=== PATIENT | female | born 1990 | race Caucasian/White ===

== ENCOUNTER 2018-11-07 09:16 | Emergency (ER) | payer MEDICAID ==
[2018-11-07] MEDS: ACETAMINOPHEN 325 MG TAB PO (10:18)
[2018-11-07] MEDS: SOD CHLORIDE 0.9% 1,000 ML IV (10:31)
[2018-11-07 10:42] LABS: ADD UMIC YES; UR ASCORBIC ACID 40 mg/dL (NEGATIVE); UR BACTERIA MODERATE /HPF (NONE SEEN); UR BILIRUBIN (Dip) NEGATIVE (NEGATIVE); UR BLOOD (Dip) NEGATIVE (NEGATIVE); UR CLARITY CLOUDY (CLEAR); UR COLOR AMBER (YELLOW); UR GLUCOSE (Dip) NEGATIVE (NEGATIVE); UR KETONES (Dip) 2+ mg/dL (NEGATIVE); UR LEUKOCYTE ESTERASE (Dip) TRACE Leu/ul (NEGATIVE); UR MUCUS MANY /HPF (NONE SEEN); UR NITRITE (Dip) NEGATIVE (NEGATIVE); UR RBC 0 /HPF (0-5); UR SPECIFIC GRAVITY (Dip) 1.026 (1.003-1.030); UR SQUAMOUS EPITHELIAL CELL FEW /HPF (FEW); UR TOTAL PROTEIN (Dip) NEGATIVE (NEGATIVE); UR UROBILINOGEN (Dip) NEGATIVE (NEGATIVE); UR WBC 18 /HPF (0-5)
[2018-11-07] MEDS: CEFTRIAXONE 1 GM/50 ML (PMX) 50 ML IVPB (11:39)
[2018-11-07] MEDS: OSELTAMIVIR 75 MG CAP PO (11:40)
[2018-11-07] MEDS: SODIUM CHLORIDE 0.9% 1L BAG IV* (12:12)
== END 2018-11-07 13:12 | disposition home or self-care (01) ==
LOC: FTE 09:16
DX: O99.519 Diseases of the respiratory system complicating pregnancy, unspecified trimester (principal); O23.40 Unspecified infection of urinary tract in pregnancy, unspecified trimester; J10.1 Influenza due to other identified influenza virus with other respiratory manifestations; Z3A.00 Weeks of gestation of pregnancy not specified
CPT/HCPCS: 81001; 81025; 87400; 96374; 99284-25

== ENCOUNTER 2019-03-30 11:04 | Inpatient (IN) | payer OTHER, MEDICAID ==
[2019-03-30] MEDS ORDERED: CARBOPROST 250 MCG INJ IM (12:00)
[2019-03-30] MEDS ORDERED: IBUPROFEN 600 MG TAB PO (12:00)
[2019-03-30] MEDS ORDERED: MISOPROSTOL 200 MCG TAB PR (12:00)
[2019-03-30] MEDS ORDERED: OXYTOCIN 30 UNITS/LR 500 ML IV ×2 (12:00)
[2019-03-30] MEDS ORDERED: METHYLERGONOVINE 0.2 MG INJ IM (12:00)
[2019-03-30] MEDS ORDERED: LIDOCAINE 1% (MPF) 30 ML INJ INJ (12:00)
[2019-03-30 13:17] LABS: ADD UMIC YES; UR AMORPHOUS CRYSTAL FEW /HPF (NONE SEEN); UR ASCORBIC ACID NEGATIVE (NEGATIVE); UR BACTERIA MANY /HPF (NONE SEEN); UR BILIRUBIN (Dip) NEGATIVE (NEGATIVE); UR BLOOD (Dip) 1+ mg/dL (NEGATIVE); UR CLARITY CLOUDY (CLEAR); UR COLOR YELLOW (YELLOW); UR GLUCOSE (Dip) NEGATIVE (NEGATIVE); UR KETONES (Dip) NEGATIVE (NEGATIVE); UR LEUKOCYTE ESTERASE (Dip) 3+ Leu/ul (NEGATIVE); UR NITRITE (Dip) NEGATIVE (NEGATIVE); UR RBC 8 /HPF (0-5); UR SPECIFIC GRAVITY (Dip) 1.004 (1.003-1.030); UR SQUAMOUS EPITHELIAL CELL FEW /HPF (FEW); UR TOTAL PROTEIN (Dip) NEGATIVE (NEGATIVE); UR UROBILINOGEN (Dip) NEGATIVE (NEGATIVE); UR WBC 30 /HPF (0-5)
[2019-03-30] MEDS: LACTATED RINGER'S 1,000 ML IV ×2 (13:26→17:41)
[2019-03-30 13:35] LABS: ADD MAN DIFF? NO
[2019-03-30 13:38] LABS: BASOPHILS % 0.2 % (0.0-2.0); EOSINOPHILS # 0.1 10^3/ul (0.0-0.5); EOSINOPHILS % 1.2 % (0.0-7.0); HEMATOCRIT 38.2 % (37.0-47.0); HEMOGLOBIN 13.7 g/dl (12.0-16.0); LYMPHOCYTES # 1.9 10^3/ul (0.8-2.9); LYMPHOCYTES % 22.4 % (15.0-51.0); MEAN CORPUSCULAR HEMOGLOBIN 30.9 pg (29.0-33.0); MEAN CORPUSCULAR HGB CONC 35.9 g/dl (32.0-37.0); MEAN PLATELET VOLUME 12.4 fl (7.4-10.4); MONOCYTE # 0.8 10^3/ul (0.3-0.9); MONOCYTES % 8.8 % (0.0-11.0); NEUTROPHIL # 5.7 10^3/ul (1.6-7.5); NEUTROPHILS % 66.8 % (39.0-77.0); PLATELET COUNT 159 10^3/UL (140-415); RED BLOOD COUNT 4.44 10^6/ul (4.20-5.40); RED CELL DISTRIBUTION WIDTH 13.8 % (11.5-14.5)
[2019-03-30 13:38] LABS: WHITE BLOOD COUNT 8.6 10^3/ul (4.8-10.8)
[2019-03-30 13:56] LABS: ALANINE AMINOTRANSFERASE 15 IU/L (13-69); ALBUMIN 3.6 g/dl (3.3-4.9); ALKALINE PHOSPHATASE 185 IU/L (42-121); ANION GAP 9 (5-13); ASPARTATE AMINO TRANSFERASE 22 IU/L (15-46); BILIRUBIN,INDIRECT 0.8 mg/dl (0-1.1); BILIRUBIN,TOTAL 0.8 mg/dl (0.2-1.3); BLOOD UREA NITROGEN 8 mg/dl (7-20); CALCIUM 9.4 mg/dl (8.4-10.2); CARBON DIOXIDE 20 mmol/L (21-31); CHLORIDE 110 mmol/L (97-110); CREATININE 0.54 mg/dl (0.44-1.00); Estimated GFR > 60 mL/min (>60); GLUCOSE 88 mg/dl (70-220); SODIUM 139 mmol/L (135-144); TOTAL PROTEIN 7.2 g/dl (6.1-8.1); URIC ACID 6.4 mg/dl (3.1-7.9)
[2019-03-30 13:57] LABS: INR 0.82; PARTIAL THROMBOPLASTIN TIME 24.2 Sec (23.0-35.0); PROTIME 11.4 Sec (11.9-14.9); PT RATIO 0.9
[2019-03-30 14:27] LABS: HEPATITIS B SURFACE ANTIGEN NEGATIVE (NEGATIVE)
[2019-03-30 14:37] LABS: HIV 1&2 ANTIBODY NEGATIVE (NEGATIVE)
[2019-03-30 20:03] LABS: RAPID PLASMA REAGIN NONREACTIVE (NR)
[2019-03-30] MEDS: MISOPROSTOL 50 MCG CAPSULE PO (22:54)
[2019-03-30] MEDS: AMPICILLIN 2 GM/NS (PMX) 100 ML IV (22:54)
[2019-03-31] MEDS ORDERED: MISOPROSTOL 50 MCG CAPSULE PO ×2 (01:00→22:30)
[2019-03-31] MEDS: LACTATED RINGER'S 1,000 ML IV ×2 (03:01→14:00)
[2019-03-31] MEDS: AMPICILLIN 1 GM/NS (PMX) 50 ML IV ×5 (03:01→23:44)
[2019-03-31] MEDS: MISOPROSTOL 50 MCG CAPSULE PO ×5 (03:02→20:43)
[2019-03-31] MEDS: MAGNESIUM SULFATE 4 GM/100 ML 100 ML IVPB (19:40)
[2019-03-31] MEDS: MAGNESIUM SULFATE 20 GM/500 ML 500 ML IV (20:22)
[2019-03-31 20:26] LABS: ADD MAN DIFF? NO
[2019-03-31 20:28] LABS: WHITE BLOOD COUNT 10.3 10^3/ul (4.8-10.8)
[2019-03-31 20:28] LABS: BASOPHILS % 0.1 % (0.0-2.0); EOSINOPHILS # 0.1 10^3/ul (0.0-0.5); EOSINOPHILS % 0.5 % (0.0-7.0); HEMATOCRIT 37.2 % (37.0-47.0); HEMOGLOBIN 13.3 g/dl (12.0-16.0); LYMPHOCYTES # 2.3 10^3/ul (0.8-2.9); LYMPHOCYTES % 22.7 % (15.0-51.0); MEAN CORPUSCULAR HEMOGLOBIN 31.1 pg (29.0-33.0); MEAN CORPUSCULAR HGB CONC 35.8 g/dl (32.0-37.0); MEAN CORPUSCULAR VOLUME 86.9 fl (82.0-101.0); MEAN PLATELET VOLUME 12.5 fl (7.4-10.4); MONOCYTES % 9.4 % (0.0-11.0); NEUTROPHIL # 6.9 10^3/ul (1.6-7.5); NEUTROPHILS % 66.8 % (39.0-77.0); NUCLEATED RED BLOOD CELLS% 0.2 /100WBC (0.0-0.0); PLATELET COUNT 163 10^3/UL (140-415); RED BLOOD COUNT 4.28 10^6/ul (4.20-5.40); RED CELL DISTRIBUTION WIDTH 13.8 % (11.5-14.5)
[2019-03-31 20:49] LABS: ALANINE AMINOTRANSFERASE 14 IU/L (13-69); ALBUMIN 3.4 g/dl (3.3-4.9); ALBUMIN/GLOBULIN RATIO 0.97; ALKALINE PHOSPHATASE 198 IU/L (42-121); ANION GAP 10 (5-13); ASPARTATE AMINO TRANSFERASE 21 IU/L (15-46); BILIRUBIN,INDIRECT 0.9 mg/dl (0-1.1); BILIRUBIN,TOTAL 0.9 mg/dl (0.2-1.3); BLOOD UREA NITROGEN 7 mg/dl (7-20); CALCIUM 9.1 mg/dl (8.4-10.2); CARBON DIOXIDE 18 mmol/L (21-31); CHLORIDE 108 mmol/L (97-110); CREATININE 0.56 mg/dl (0.44-1.00); Estimated GFR > 60 mL/min (>60); GLUCOSE 88 mg/dl (70-220); POTASSIUM 3.7 mmol/L (3.5-5.1); SODIUM 136 mmol/L (135-144); TOTAL PROTEIN 6.9 g/dl (6.1-8.1); URIC ACID 6.3 mg/dl (3.1-7.9)
[2019-04-01] MEDS: LACTATED RINGER'S 1,000 ML IV ×3 (01:38→19:26)
[2019-04-01] MEDS: AMPICILLIN 1 GM/NS (PMX) 50 ML IV ×5 (03:43→20:04)
[2019-04-01] MEDS: MAGNESIUM SULFATE 20 GM/500 ML 500 ML IV ×2 (06:44→17:01)
[2019-04-01 07:10] LABS: MAGNESIUM 5.4 mg/dl (1.7-2.5)
[2019-04-01] MEDS: OXYTOCIN 30 UNITS/LR 500 ML IV (11:45)
[2019-04-01 12:39] LABS: MAGNESIUM 5.4 mg/dl (1.7-2.5)
[2019-04-01] MEDS: ACETAMINOPHEN 325 MG TAB PO (15:12)
[2019-04-01 19:46] LABS: RUBELLA ANTIBODY - IGG 6.77 index
[2019-04-01 20:08] LABS: MAGNESIUM 5.7 mg/dl (1.7-2.5)
[2019-04-02] MEDS: ONDANSETRON 4 MG INJ IV (00:04)
[2019-04-02] MEDS: AMPICILLIN 1 GM/NS (PMX) 50 ML IV ×10 (00:04→21:24)
[2019-04-02 01:49] LABS: MAGNESIUM 6.1 mg/dl (1.7-2.5)
[2019-04-02] MEDS: MAGNESIUM SULFATE 20 GM/500 ML 500 ML IV ×3 (02:14→22:34)
[2019-04-02 06:34] LABS: MAGNESIUM 6.2 mg/dl (1.7-2.5)
[2019-04-02] MEDS: LACTATED RINGER'S 1,000 ML IV (10:17)
[2019-04-02] MEDS: BUTORPHANOL 2 MG INJ IV (12:23)
[2019-04-02 13:36] LABS: MAGNESIUM 6.2 mg/dl (1.7-2.5)
[2019-04-02] MEDS ORDERED: NALOXONE (0.4 MG/ML) INJ IV (14:30)
[2019-04-02] MEDS ORDERED: DIPHENHYDRAMINE 50 MG INJ IV (14:30)
[2019-04-02] MEDS ORDERED: ONDANSETRON 4 MG INJ IV (14:30)
[2019-04-02] MEDS ORDERED: KETOROLAC 30 MG INJ IV (14:30)
[2019-04-02] MEDS ORDERED: HYDROmorphONE 0.5 MG/0.5 ML SYG IV ×2 (14:30)
[2019-04-02] MEDS: DEXTROSE 5%-LR 1,000 ML IV (17:58)
[2019-04-02] MEDS: OXYTOCIN 30 UNITS/LR 500 ML IV (17:58)
[2019-04-02 19:06] LABS: MAGNESIUM 6.2 mg/dl (1.7-2.5)
[2019-04-02] MEDS: ACETAMINOPHEN 325 MG TAB PO (20:54)
[2019-04-02] MEDS: FENTAnyl 2MCG/ML-ROPIV 0.2% 100 ML BAG EPI ×2 (20:55→21:37)
[2019-04-02] MEDS ORDERED: CLINDAMYCIN 900 MG INJ IVPB (21:00)
[2019-04-02] MEDS: ACETAMINOPHEN 500 MG TAB PO (21:36)
[2019-04-02] MEDS: CLINDAMYCIN 900 MG/D5W (PMX) 50 ML IVPB (21:44)
[2019-04-03] MEDS: AMPICILLIN 1 GM/NS (PMX) 50 ML IV ×5 (01:39→16:35)
[2019-04-03] MEDS: CLINDAMYCIN 900 MG/D5W (PMX) 50 ML IVPB ×3 (03:33→15:24)
[2019-04-03] MEDS: LACTATED RINGER'S 1,000 ML IV ×4 (03:34→22:22)
[2019-04-03] MEDS ORDERED: MINERAL OIL LIGHT 10 ML VIAL TOP (04:00)
[2019-04-03] MEDS: FENTAnyl 2MCG/ML-ROPIV 0.2% 100 ML BAG EPI ×2 (05:59→11:51)
[2019-04-03 08:10] LABS: LACTIC ACID 1.5 mmol/L (0.5-2.0)
[2019-04-03 08:20] LABS: MAGNESIUM 5.8 mg/dl (1.7-2.5)
[2019-04-03] MEDS: MAGNESIUM SULFATE 20 GM/500 ML 500 ML IV (08:27)
[2019-04-03] MEDS ORDERED: LIDOCAINE 1.5%/EPI MPF (SDV) 30 ML VIAL ×2 (09:18→18:16)
[2019-04-03 12:12] LABS: RUBELLA ANTIBODY - IGM <20.00 AU/mL
[2019-04-03 13:08] LABS: MAGNESIUM 6.3 mg/dl (1.7-2.5)
[2019-04-03] MEDS: MINERAL OIL LIGHT 10 ML VIAL TOP (13:30)
[2019-04-03] MEDS: DEXTROSE 5%-LR 1,000 ML IV (17:25)
[2019-04-03] MEDS ORDERED: CEFAZOLIN 2 GM/50 ML (PMX) 50 ML IVPB ×2 (18:14→18:30)
[2019-04-03] MEDS ORDERED: OXYTOCIN 30 UNITS/LR 500 ML IV ×2 (18:16→22:30)
[2019-04-03] MEDS ORDERED: METOCLOPRAMIDE 10 MG INJ (18:16)
[2019-04-03] MEDS ORDERED: ONDANSETRON 4 MG INJ (18:16)
[2019-04-03] MEDS ORDERED: KETOROLAC 30 MG INJ (18:16)
[2019-04-03] MEDS ORDERED: FENTAnyl 50 MCG/ML VIAL (18:54)
[2019-04-03] MEDS ORDERED: DIPHENHYDRAMINE 50 MG INJ IV ×2 (19:30)
[2019-04-03] MEDS ORDERED: ONDANSETRON 4 MG INJ IV ×2 (19:30)
[2019-04-03] MEDS ORDERED: KETOROLAC 30 MG INJ IV (19:30)
[2019-04-03] MEDS: OXYTOCIN 30 UNITS/LR 500 ML IV (19:30)
[2019-04-03] MEDS ORDERED: morphine 2 MG INJ IV ×5 (19:30)
[2019-04-03] MEDS ORDERED: NALOXONE (0.4 MG/ML) INJ IV (19:30)
[2019-04-03] MEDS: KETOROLAC 30 MG INJ IV (19:52)
[2019-04-03] MEDS ORDERED: MISOPROSTOL 200 MCG TAB PR (22:30)
[2019-04-03] MEDS ORDERED: METHYLERGONOVINE 0.2 MG INJ IM (22:30)
[2019-04-03] MEDS ORDERED: HYDROCODONE/APAP (5/325) TAB PO (22:30)
[2019-04-03] MEDS ORDERED: CARBOPROST 250 MCG INJ IM (22:30)
[2019-04-03] MEDS ORDERED: NA PHOSPHATE/BIPHOS 133 ML ENEMA PR (22:30)
[2019-04-03] MEDS ORDERED: NACL 0.9% 3 ML SYG IV (22:30)
[2019-04-04] MEDS: OXYTOCIN 30 UNITS/LR 500 ML IV (01:31)
[2019-04-04] MEDS: morphine 2 MG INJ IV (01:50)
[2019-04-04] MEDS: KETOROLAC 30 MG INJ IV ×2 (08:04→15:29)
[2019-04-04] MEDS: IBUPROFEN 800 MG TAB PO (21:36)
[2019-04-04 22:35] LABS: ADD MAN DIFF? NO
[2019-04-04 22:36] LABS: WHITE BLOOD COUNT 13.6 10^3/ul (4.8-10.8)
[2019-04-04 22:36] LABS: BASOPHILS % 0.1 % (0.0-2.0); EOSINOPHILS # 0.1 10^3/ul (0.0-0.5); EOSINOPHILS % 0.6 % (0.0-7.0); HEMATOCRIT 27.4 % (37.0-47.0); HEMOGLOBIN 9.6 g/dl (12.0-16.0); LYMPHOCYTES # 1.9 10^3/ul (0.8-2.9); LYMPHOCYTES % 13.8 % (15.0-51.0); MEAN CORPUSCULAR VOLUME 88.4 fl (82.0-101.0); MEAN PLATELET VOLUME 11.4 fl (7.4-10.4); MONOCYTE # 1.2 10^3/ul (0.3-0.9); MONOCYTES % 8.6 % (0.0-11.0); NEUTROPHIL # 10.4 10^3/ul (1.6-7.5); NEUTROPHILS % 76.4 % (39.0-77.0); PLATELET COUNT 149 10^3/UL (140-415)
[2019-04-05] MEDS: IBUPROFEN 800 MG TAB PO ×3 (05:44→22:14)
[2019-04-05] MEDS: LANOLIN HPA 1 PKT TOP (08:14)
[2019-04-06] MEDS: IBUPROFEN 800 MG TAB PO (06:06)
[2019-04-06] MEDS: DIPHTH/TET/ACEL PERTUSS (ADULT) 0.5 ML VIAL IM* (08:50)
[2019-04-06] MEDS: MEASLES,MUMPS,RUBELLA VACCINE INJ SC* (08:51)
== END 2019-04-06 13:40 | disposition home or self-care (01) | DRG 788 ==
LOC: L-D 11:04 → PP1 04-03 21:50 → L-D 11:30
PROC: 10D00Z1 Extraction of Products of Conception, Low, Open Approach (ICD-10-PCS; principal; 2019-04-04)
PROC: 3E033VJ Introduction of Other Hormone into Peripheral Vein, Percutaneous Approach (ICD-10-PCS; 2019-04-04)
DX: O13.4 Gestational [pregnancy-induced] hypertension without significant proteinuria, complicating childbirth (principal); O99.214 Obesity complicating childbirth; O62.0 Primary inadequate contractions; Z3A.38 38 weeks gestation of pregnancy; Z37.0 Single live birth
CPT/HCPCS: 62322; 76815; 80053; 81001; 83605; 83735; 84560; 85025; 85384; 85610; 85730; 86592; 86703; 86762; 86850; 86900; 86901; 87340; 88307; 90715; 99464